=== PATIENT | female | born 1990 | race American Indian/Alaskan Native ===

== ENCOUNTER 2018-08-11 14:35 | Emergency (ER) | payer BC, OTHER ==
--- NOTE | 2018-08-11 16:33 | Emergency Department Report ---
ED Upper Extremity Inj HPI - General Chief Complaint: Shoulder Injury Stated Complaint: LFT SHOULDER DISLOCATED Time Seen by Provider: 08/11/18 16:15 Source: patient Mode of arrival: Ambulatory Limitations: No Limitations - History of Present Illness Initial Comments: She is a 27-year-old female presents to emergency room with complaints of left shoulder pain. Patient states she is having difficult her shoulder due to pain. Patient denies fall. Patient denies trauma. Patient denies any type of lifting recently. Patient denies injury. Patient states the pain is just a lot and she is having difficulty moving her shoulder. Patient states the pain is a 10 out of 10. Patient states the pain is better with position and rest. Patient states the pain is worse with movement and palpation. Patient states the pain started yesterday and has become worse over the last 24 hours. MD Complaint: Injury to:: left, shoulder -: Sudden Other Extremity Injury: Shoulder: Left Other Injuries: none Handedness: right Place: home Severity scale (0 -10): 10 Improves With: immobilization, rest Worsens With: movement of extremity Associated Symptoms: denies other symptoms. denies: weakness, numbness, neck pain, suspects foreign body, nausea/vomiting, heard/felt popping sensat - Related Data Previous Rx's Medication Instructions Recorded Last Taken Type Ibuprofen [Motrin 800 MG tab] 800 mg PO Q8H PRN #40 tablet 06/02/15 Unknown Rx Sulfamethoxazole/Trimethoprim 1 each PO BID #14 tablet 06/02/15 Unknown Rx [Bactrim Ds] traMADol [Ultram] 50 mg PO Q4HR PRN #15 tablet 08/11/18 Unknown Rx Allergies Allergy/AdvReac Type Severity Reaction Status Date / Time grass pollen Allergy Unknown Verified 08/11/18 14:44 hazelnut Allergy Unknown Verified 08/11/18 14:44 shellfish derived Allergy Itching Verified 08/11/18 14:44 tree and shrub pollen Allergy Unknown Verified 08/11/18 14:44 ED Review of Systems ROS: Stated complaint: LFT SHOULDER DISLOCATED Other details as noted in HPI Constitutional: denies: chills, fever Eyes: denies: eye pain, eye discharge, vision change ENT: denies: ear pain, throat pain Respiratory: denies: cough, shortness of breath, wheezing Cardiovascular: denies: chest pain, palpitations Endocrine: no symptoms reported Gastrointestinal: denies: abdominal pain, nausea, diarrhea Genitourinary: denies: urgency, dysuria, discharge Musculoskeletal: denies: back pain, joint swelling, arthralgia Skin: denies: rash, lesions Neurological: denies: headache, weakness, paresthesias Psychiatric: denies: anxiety, depression Hematological/Lymphatic: denies: easy bleeding, easy bruising ED Past Medical Hx - Past Medical History Previous Medical History?: Yes Hx Hypertension: Yes Hx Diabetes: Yes (off metformin) Hx Asthma: Yes - Surgical History Past Surgical History?: No - Family History Family history: no significant - Social History Smoking Status: Never Smoker Substance Use Type: None - Medications Home Medications: Home Medications Medication Instructions Recorded Confirmed Last Taken Type Ibuprofen [Motrin 800 MG tab] 800 mg PO Q8H PRN #40 tablet 06/02/15 Unknown Rx Sulfamethoxazole/Trimethoprim 1 each PO BID #14 tablet 06/02/15 Unknown Rx [Bactrim Ds] traMADol [Ultram] 50 mg PO Q4HR PRN #15 tablet 08/11/18 Unknown Rx ED Physical Exam - General Limitations: No Limitations General appearance: alert, in no apparent distress - Head Head exam: Present: atraumatic, normocephalic - Eye Eye exam: Present: normal appearance - ENT ENT exam: Present: mucous membranes moist - Neck Neck exam: Present: normal inspection - Respiratory Respiratory exam: Present: normal lung sounds bilaterally. Absent: respiratory distress - Cardiovascular Cardiovascular Exam: Present: regular rate, normal rhythm. Absent: systolic murmur, diastolic murmur, rubs, gallop - GI/Abdominal GI/Abdominal exam: Present: soft, normal bowel sounds - Extremities Exam Extremities exam: Present: normal inspection (shoulders appear symmetrical however due to patient's body habitus difficult to determine), tenderness (left shoulder tenderness. Decreased active range of motion due to pain. Decreased passive range of motion due to pain) - Back Exam Back exam: Present: normal inspection - Neurological Exam Neurological exam: Present: alert, oriented X3 - Psychiatric Psychiatric exam: Present: normal affect, normal mood - Skin Skin exam: Present: warm, dry, intact, normal color. Absent: rash ED Course Vital Signs 08/11/18 08/11/18 14:44 17:45 Temperature 98.5 F 98.5 F Pulse Rate 93 H 84 Respiratory 18 18 Rate Blood Pressure 161/76 Blood Pressure 156/80 [Right] O2 Sat by Pulse 98 99 Oximetry - Reevaluation(s) Reevaluation #1: Skeletal results with patient. Patient informed the her x-ray does not show a dislocation shows arthrosis. Patient informed she will need to see an orthopedist for further evaluation treatment. Patient given discharge instructions and return to ER instructions. We'll discharge patient home with pain meds. We'll also discharge patient home with a sling 08/11/18 17:41 ED Medical Decision Making - Radiology Data Radiology results: report reviewed, image reviewed interpreted by me: Reviewed the images and it appears that the shoulder is not dislocated FINAL REPORT EXAM: XR SHOULDER 2+V LT HISTORY: pain and tightness TECHNIQUE: 4 views of the left shoulder PRIORS: Two-view chest 06/02/2015 FINDINGS: Slight degenerative arthrosis includes articular surface irregularity and slight juxta-articular hypertrophy at the AC joint. There is no significant abnormality at the glenohumeral joint. No fracture, dislocation, or misalignment is evident. IMPRESSION: No acute skeletal pathology AC degenerative arthrosis Transcribed By: BAL Dictated By: INDIRA MOROCHO MD Electronically Authenticated By: INDIRA MOROCHO MD Signed Date/Time: 08/11/18 1636 - Medical Decision Making She is a 27-year-old female presents to emergency room with complaints of left shoulder pain that started without cause. Patient x-ray done and it shows degenerative arthrosis but no dislocation or fracture or misalignment. Report reviewed with patient. Patient given discharge instruction of voiced understanding of all instructions. - Differential Diagnosis shoulder pain. Sprain, strain, dislocation, fracture Critical care attestation.: If time is entered above; I have spent that time in minutes in the direct care of this critically ill patient, excluding procedure time. ED Disposition Clinical Impression: Elevated blood pressure (not hypertension) Shoulder pain, acute Qualifiers: Laterality: left Qualified Code(s): M25.512 - Pain in left shoulder Shoulder sprain Qualifiers: Encounter type: initial encounter Shoulder sprain type: unspecified sprain Laterality: left Qualified Code(s): S43.402A - Unspecified sprain of left shoulder joint, initial encounter Disposition: TO HOME OR SELFCARE Is pt being admited?: No Does the pt Need Aspirin: No Condition: Stable Instructions: Heart Healthy Diet (ED), How to Take a Blood Pressure (ED), Shoulder Sprain (ED), DASH Eating Plan (ED), Low Sodium Diet (ED) Additional Instructions: Patient follow up with primary care in 3-5 days. Patient to follow-up with orthopedist in 2-3 days. Patient to return to ER if condition worsens. Patient to take ibuprofen and Tylenol when necessary for pain. Patient to rest. Patient to RICE. Prescriptions: traMADol [Ultram] 50 mg PO Q4HR PRN #15 tablet PRN Reason: Pain Referrals: PRIMARY CAREMD [Primary Care Provider] - 3-5 Days CONRAD TARANGO MD [Staff Physician] - 3-5 Days Time of Disposition: 17:45
--- NOTE | 2018-08-11 16:37 | XRay Report ---
FINAL REPORT EXAM: XR SHOULDER 2+V LT HISTORY: pain and tightness TECHNIQUE: 4 views of the left shoulder PRIORS: Two-view chest 06/02/2015 FINDINGS: Slight degenerative arthrosis includes articular surface irregularity and slight juxta-articular hypertrophy at the AC joint. There is no significant abnormality at the glenohumeral joint. No fracture, dislocation, or misalignment is evident. IMPRESSION: No acute skeletal pathology AC degenerative arthrosis
[2018-08-11 18:12] VITALS: BP 156/80
== END 2018-08-11 18:05 | disposition home or self-care (01) ==
LOC: ED 14:35
DX: S43.492A Other sprain of left shoulder joint, initial encounter (principal); I10 Essential (primary) hypertension; E11.9 Type 2 diabetes mellitus without complications; J45.909 Unspecified asthma, uncomplicated; Z79.899 Other long term (current) drug therapy; Z91.048 Other nonmedicinal substance allergy status; Z91.013 Allergy to seafood; X58.XXXA Exposure to other specified factors, initial encounter; Y93.89 Activity, other specified; Y92.89 Other specified places as the place of occurrence of the external cause; Y99.8 Other external cause status

== ENCOUNTER 2022-07-05 11:52 | Emergency (ER) | payer BC | END 2022-07-06 00:59 | disposition left against medical advice (07) | LOC: ED 11:52 | DX: S42.402A Unspecified fracture of lower end of left humerus, initial encounter for closed fracture (principal); S42.309A Unspecified fracture of shaft of humerus, unspecified arm, initial encounter for closed fracture; Z53.21 Procedure and treatment not carried out due to patient leaving prior to being seen by health care provider; X58.XXXA Exposure to other specified factors, initial encounter; Y93.89 Activity, other specified; Y92.89 Other specified places as the place of occurrence of the external cause; Y99.8 Other external cause status ==